=== PATIENT | male | born 1930 | race Caucasian/White ===

== ENCOUNTER 2017-06-20 10:40 | Emergency (ER) | payer MEDICARE, BC ==
--- NOTE | 2017-06-20 11:25 | EDM.PDOC ---
ED HPI GENERAL MEDICAL PROBLEM - General Chief Complaint: General Stated Complaint: head and neck pain Time Seen by Provider: 06/20/17 11:10 Source of Information: Reports: Patient History Limitations: Reports: No Limitations - History of Present Illness INITIAL COMMENTS - FREE TEXT/NARRATIVE: This patient is a pleasant 86 year old male that presents to the ER. Patient reports that he had a pacemaker placed on the 17th of this month. Patient reports since having the pacemaker placed he has developed a headache to the top of his head. Patient reports the pain comes and goes. Patient reports that the pain the last couple of days has been worse. Patient reports that he also has neck pain with this pain as well to the center of his neck. The patient reports that the neck and headache pain are worse with movement. Patient reports that if he gest up or lays down to fast, or moves fast it hurts worse. The patient reports his head hurts worse than his neck. Patent reports that holding his hands on his head and applying pressure to the top of the head makes his head and neck pain better. Patient is alert and oriented. Patient denies unilateral weaknesses. Patient denies dizziness, n, v, d, f, sinus pressure, congestion, drainage, chest pain, shortness of breath, abd pain, urinary/bowel changes, back pain. Stroke score 0. GCS 15. Patient has history of Multiple Myeloma as well and has been getting chemo for the past 2 years. Onset Date: 06/09/17 Location: Reports: Head, Neck Quality: Reports: Pressure Severity: Severe Improves with: Reports: Other (Applying pressure to the top of the head) Worsens with: Reports: Movement Associated Symptoms: Reports: Headaches. Denies: Confusion, Chest Pain, Cough, cough w sputum, Diaphoresis, Fever/Chills, Loss of Appetite, Malaise, Nausea/ Vomiting, Rash, Seizure, Shortness of Breath, Syncope, Weakness Head Pain Score (Numeric/FACES): 10 - Related Data Allergies Allergy/AdvReac Type Severity Reaction Status Date / Time No Known Allergies Allergy Verified 06/20/17 10:55 Home Meds: Home Meds Lisinopril 2.5 mg PO DAILY 12/04/15 [History] atorvaSTATin Calcium [Atorvastatin Calcium] 10 mg PO DAILY 12/04/15 [History] Cyanocobalamin/FA/Pyridoxine [Folbee] 1 each PO DAILY 06/20/17 [History] Cyanocobalamin/FA/Pyridoxine [Folbic Tablet] 1 tab PO DAILY 06/20/17 [History] Warfarin [Coumadin] 5 mg PO ASDIRECTED 06/20/17 [History] Warfarin [Coumadin] 7.5 mg PO DAILY 06/20/17 [History] ED ROS GENERAL - Review of Systems Review Of Systems: See Below Constitutional: Reports: No Symptoms HEENT: Reports: No Symptoms Respiratory: Reports: No Symptoms Cardiovascular: Reports: Edema (LLE unchanged chronic per patient). Denies: Chest Pain, Lightheadedness, Palpitations, Syncope Endocrine: Reports: No Symptoms GI/Abdominal: Reports: No Symptoms. Denies: Abdominal Pain, Diarrhea, Nausea, Vomiting : Reports: No Symptoms Musculoskeletal: Reports: Neck Pain. Denies: Shoulder Pain, Arm Pain, Back Pain , Hand Pain, Leg Pain, Foot Pain, Joint Pain, Joint Swelling, Muscle Pain, Muscle Stiffness Skin: Reports: No Symptoms Neurological: Reports: Headache. Denies: Confusion Psychiatric: Reports: No Symptoms Hematologic/Lymphatic: Reports: No Symptoms Immunologic: Reports: No Symptoms ED EXAM, GENERAL - Physical Exam Exam: See Below Exam Limited By: No Limitations General Appearance: Alert, WD/WN, No Apparent Distress Eye Exam: Bilateral Eye: EOMI, Normal Inspection Ears: Normal External Exam, Normal Canal, Hearing Grossly Normal, Normal TMs Ear Exam: Bilateral Ear: Auricle Normal, Canal Normal, TM normal Nose: Normal Inspection, Normal Mucosa, No Blood Throat/Mouth: Normal Inspection, Normal Lips, Normal Teeth (Dentures), Normal Gums, Normal Oropharynx, Normal Voice, No Airway Compromise Head: Atraumatic, Normocephalic Neck: Normal Inspection, Supple, Full Range of Motion (with pain. that makes pain worse to the top of the head. ), Tender Midline Respiratory/Chest: No Respiratory Distress, Lungs Clear, Normal Breath Sounds, No Accessory Muscle Use, Chest Non-Tender Cardiovascular: Normal Peripheral Pulses, Regular Rate, Rhythm, No Edema, No Gallop, No JVD, No Rub, Systolic Murmur, Other (Pacemaker) Peripheral Pulses: 2+: Radial (L), Radial (R), Posterior Tibial (L), Posterior Tibial (R), Dorsalis Pedis (L), Dorsalis Pedis (R) GI/Abdominal: Normal Bowel Sounds, Soft, Non-Tender, No Organomegaly, No Distention, No Abnormal Bruit, No Mass, Pelvis Stable (Male) Exam: Deferred Rectal (Males) Exam: Deferred Back Exam: Normal Inspection, Full Range of Motion. No: CVA Tenderness (L), CVA Tenderness (R), Decreased Range of Motion, Muscle Spasm, Paraspinal Tenderness, Vertebral Tenderness Extremities: Normal Inspection, Normal Range of Motion, Non-Tender, Normal Capillary Refill, Pedal Edema (+1 LLE) Neurological: Alert, Oriented, CN II-XII Intact, Normal Cognition, No Motor/ Sensory Deficits Psychiatric: Normal Affect, Normal Mood Skin Exam: Warm, Dry, Intact, Normal Color, No Rash, Other (Pacemaker left chest healed well. No redness, no heat, no drainage, no open wound. ) Lymphatic: No Adenopathy Course - Vital Signs Last Recorded V/S: Last Vital Signs Temp 96.5 F 06/20/17 11:43 Pulse 65 06/20/17 11:43 Resp 16 06/20/17 11:43 BP 180/80 H 06/20/17 11:43 Pulse Ox 99 06/20/17 11:43 - Orders/Labs/Meds Orders: Active Orders 24 hr Category Date Time Status Cervical Spine wo Cont [CT] Stat Exams 06/20/17 10:43 Taken Chest 1V Frontal [CR] Stat Exams 06/20/17 12:05 Taken Head wo Cont [CT] Stat Exams 06/20/17 10:43 Taken Labs: Laboratory Tests 06/20/17 06/20/17 06/20/17 Range/Units 11:10 11:10 11:18 WBC 2.6 L (5.0-10.0) 10^3/uL RBC 3.75 L (4.50-6.00) 10^6/uL Hgb 12.3 L (14.0-18.0) g/dL Hct 38.6 L (40.0-54.0) % MCV 102.9 H (82.0-94.0) fL MCH 32.8 H (27.0-32.0) pg MCHC 31.9 L (33.0-38.0) g/dL RDW Coeff of Brian 15.3 H (11.0-15.0) % Plt Count 105 L (150-400) 10^3/uL Neut % (Auto) 49.6 (35-85) % Lymph % (Auto) 30.3 (10-55) % [place] % (Auto) 12.5 (0-16) % Eos % (Auto) 7.2 H (0-5) % Baso % (Auto) 0.4 (0-3) % Neut # (Auto) 1.31 L (1.80-7.00) 10^3/uL Lymph # (Auto) 0.80 L (1.00-4.80) 10^3/uL [place] # (Auto) 0.33 (0.00-0.80) 10^3/uL Eos # (Auto) 0.19 (0.00-0.45) 10^3/uL Baso # (Auto) 0.01 10^3/uL PT 11.6 (9.7-12.3) SEC INR 1.13 (0.92-1.18) Sodium 141 (136-145) mEq/L Potassium 4.7 (3.5-5.0) mEq/L Chloride 107 H (98-106) mEq/L Carbon Dioxide 26 (21-32) mmol/L BUN 30 H (7-18) mg/dL Creatinine 1.7 H (0.7-1.3) mg/dL Est Cr Clr Drug Dosing 32.80 mL/min Estimated GFR (MDRD) 38 L (>=60) mL/min Glucose 106 H (75-99) mg/dL Calcium 8.9 (8.4-10.1) mg/dL Total Bilirubin 0.5 (0.0-1.0) mg/dL AST 27 (15-37) U/L ALT 30 (12-78) U/L Alkaline Phosphatase 74 (46-116) U/L Total Protein 7.9 (6.4-8.2) g/dL Albumin 3.3 L (3.4-5.0) g/dL Meds: Medications Discontinued Medications Generic Name Dose Route Start Last Admin Trade Name Freq PRN Reason Stop Dose Admin Metoprolol Tartrate 2.5 mg 06/20/17 12:06 Lopressor IVPUSH 06/20/17 12:07 ONETIME ONE Morphine Sulfate 2 mg 06/20/17 12:25 Morphine IVPUSH 06/20/17 12:26 ONETIME ONE Ondansetron HCl 4 mg 06/20/17 12:25 Zofran IVPUSH 06/20/17 12:26 NOW STA - Radiology Interpretation Free Text/Narrative:: CT Head/Cervical: discussed with radiologist: Brain no acute ischmic changes or bleeding. 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 The cervical: Shows new acute changes of lesions more than likely Myeloma of Dens and C2. 2.4cm. This is new from previous MRI 01/27/16. CT Results Date: 06/20/17 CT Results Time: 12:20 - Re-Assessments/Exams Free Text/Narrative Re-Assessment/Exam: 06/20/17 12:25 I have discussed patient case with radiologist. I have also called and spoke to MD with one call to ensure not missing anything on this patient. She suggested just adding a CXR to check pacemaker lead placement. The patient reports a lot of pain, I have ordered some pain medication. I have spoken to the patient and the about his condition. I did tell them I would call and speak to his oncologist for a plan of care. The patient is not able to get up from stretcher or move on his own. The reports she is unable to take him home or care for him at home. She request he be admitted. I do feel going home is not an option for this patient as he can not safely. Plus with lesions at C2, may need neuro consult and his oncologist care. 06/20/17 12:31 I have spoken to oncologist rehabilitation services aide . Located at [facility]. He reports he would like patient transferred. He is also going to consult with neurosurgeon about the patient. They will call us back. C-Collar was placed on the patient. 06/20/17 13:11 The neurosurgeon does want to see this patient. Prognosis is poor due to location of lesion. Will admit to hospitalist Dr. Groves who will sonsult neuro and oncology. Will transfer. 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 This patient is being transferred to [facility]. The risks of the transfer are paralysis, worsening of pain, , fracturing the site, worsening of condition. The benefits of the transfer are neurosurgeon, oncologist, specialist care, higher level of care. The risks of staying in [place] are paralysis, , worsening of condition, worsening of pain, fracturing the site. The benefits of staying in [place] are close to home.
[2017-06-20 13:31] VITALS: BP 172/86
[2017-06-20] MEDS: Morphine 4 MG/ML Syringe IM ONE (13:35)
[2017-06-20] MEDS: Ondansetron 4 MG Tab.DIS PO ONE (13:35)
[2017-06-20] MEDS: Ondansetron 4 MG/2 ML SDV IVPUSH STA (13:37)
[2017-06-20] MEDS: Morphine 2 MG/ML Syringe IVPUSH ONE (13:37)
[2017-06-20] MEDS: Metoprolol Tartrate 5 MG/5 ML SDV IVPUSH ONE (13:38)
== END 2017-06-20 14:00 ==
LOC: CC.ED 10:40
DX: S14.152A Other incomplete lesion at C2 level of cervical spinal cord, initial encounter (principal); C90.00 Multiple myeloma not having achieved remission; Z79.01 Long term (current) use of anticoagulants; Z79.899 Other long term (current) drug therapy; Z95.0 Presence of cardiac pacemaker; X58.XXXA Exposure to other specified factors, initial encounter
CPT/HCPCS: 36415; 70450; 71045; 72125; 80053; 85025; 85610; 96372; 99285; A9270; J2270